=== PATIENT | male | born 2000 ===

== ENCOUNTER → 2022-01-12 | Outpatient (CLI) | payer BC ==
--- NOTE | 2022-01-12 16:21 | Diagnostic Imaging Report ---
US SCROTUM (Testicle) [id number] TECHNIQUE: Fofana-scale, color doppler and spectral duplex imaging of the scrotum and its contents was performed. INDICATION: Testicular pain and swelling. Trauma. COMPARISON: None available. FINDINGS: Right: The right testis is normal in size measuring 3.9 x 2.2 x 2.7 cm. It demonstrates heterogeneous hypoechogenicity throughout the majority of the testis. Increased vascularity is present throughout the testis involving both the normal and hypoechoic regions. The epididymis is normal. Small hydrocele. No varicocele. A small mildly complicated fluid collection medial to the right delmy-aspect of the scrotum tissue may represent hematoma. Left: The left testis is normal in size measuring 4.2 x 2.1 x 2.8 cm. It has homogenous echogenicity without mass or microcalcification. Blood flow is present in the left testis by color doppler imaging, and low resistance waveforms are present. The epididymis is normal. No hydrocele or varicole. IMPRESSION: 1. Heterogeneously hypoechoic right testicle may be due to testicular contusion. Hypervascularity is also present throughout the right testicle and this may represent hyperemia from recent injury. No testicular torsion. 2. Probable subcutaneous hematoma located along the right lateral margin of the scrotum. Dictated by: Dictated on workstation # [id number]
== END ==
LOC: RAD 12:30
PROVIDERS: ATTEND Internal Medicine
DX: S30.22XA Contusion of scrotum and testes, initial encounter (principal); X58.XXXA Exposure to other specified factors, initial encounter
CPT/HCPCS: 76870